=== PATIENT | female | born 1950 | race Caucasian/White ===

== ENCOUNTER 2018-09-25 13:31 | Emergency (ER) | payer MEDICARE, BC ==
[~2018-09-25] VITALS: Ht 160 cm; Wt 59.0 kg
[2018-09-25] MEDS ORDERED: VERA240C2 PO (13:46)
[2018-09-25] MEDS ORDERED: WARF4TAB41 PO (13:46)
[2018-09-25] MEDS ORDERED: AZAT50TA18 PO (13:46)
[2018-09-25] MEDS ORDERED: PHEN100C4 PO (13:46)
[2018-09-25] MEDS ORDERED: BENA40TA67 PO (13:46)
[2018-09-25] MEDS ORDERED: PRED1TAB PO (13:46)
[2018-09-25] MEDS ORDERED: methylPREDNISolone SOD SUCC 125 MG/2 ML VIAL IV ONE (14:00)
[2018-09-25] MEDS ORDERED: FAMOTIDINE. 20 MG/2 ML VIAL IV ONE ×2 (14:00→14:18)
[2018-09-25] MEDS ORDERED: diphenhydrAMINE 50 MG/1 ML VIAL IV ONE (14:00)
[2018-09-25] MEDS ORDERED: diphenhydrAMINE 50 MG/1 ML VIAL ONE (14:18)
[2018-09-25] MEDS ORDERED: methylPREDNISolone SOD SUCC 125 MG/2 ML VIAL ONE (14:18)
[2018-09-25 14:20] LABS: BASOPHILS % (AUTO) 0.4 % (0.0-2.0); EOSINOPHILS # (AUTO) 0.1 K/uL (0.0-0.7); EOSINOPHILS % (AUTO) 0.8 % (0.0-7.0); HEMATOCRIT 32.6 % (31.2-41.9); HEMOGLOBIN 11.3 g/dL (10.9-14.3); LYMPHOCYTES # (AUTO) 1.7 K/uL (20.0-40.0); MEAN CORPUSCULAR HEMOGLOBIN 32.8 uug (24.7-32.8); MEAN CORPUSCULAR HGB CONC 35 g/dL (32.3-35.6); MEAN CORPUSCULAR VOLUME 94.1 fL (75.5-95.3); MONOCYTES # (AUTO) 0.8 K/uL (2.0-10.0); MONOCYTES % (AUTO) 9.2 % (0.0-11.0); NEUTROPHILS # (AUTO) 6.4 K/uL (1.8-8.9); NEUTROPHILS % (AUTO) 70.6 % (38.5-71.5); PLATELET COUNT (AUTO) 255 K/uL (179-408); RED BLOOD CELL COUNT(AUTO) 3.46 MIL/uL (3.63-4.92); WHITE BLOOD COUNT (AUTO) 9.1 K/uL (3.8-11.8)
[2018-09-25 14:29] LABS: CREATININE 0.8 mg/dL (0.6-1.3)
--- NOTE | 2018-09-25 14:43 | NUR ---
PT IS IN ROOM #1B. DR MENDEZ EVALUATED THE PT.
[2018-09-25] MEDS ORDERED: POTASSIUM CHLORIDE 50 ML ONE ×3 (15:12→16:43)
[2018-09-25] MEDS: POTASSIUM CHLORIDE 50 ML IV SCH ×2 (15:22→16:57)
--- NOTE | 2018-09-25 18:45 | NUR ---
PT WAS D/C'd TO HOME. D/C INSTRUCTIONS GIVEN TO THE PT BY DR MENDEZ.
[2018-09-25 18:53] VITALS: BP 151/81
== END 2018-09-25 18:55 | disposition home or self-care (01) ==
LOC: ER 13:31
DX: T78.3XXA Angioneurotic edema, initial encounter (principal); E87.1 Hypo-osmolality and hyponatremia; E87.8 Other disorders of electrolyte and fluid balance, not elsewhere classified; Z88.0 Allergy status to penicillin; Z88.5 Allergy status to narcotic agent; Z79.01 Long term (current) use of anticoagulants; Z79.899 Other long term (current) drug therapy
CPT/HCPCS: 36415; 80048; 85025; 85730; 86850; 86900; 86901; 96365; 96366; 96375; 99283; J1200; J2930; J3480 ×3; J3490; A4663; J7030; J7050

== ENCOUNTER 2022-06-27 11:13 | Emergency (ER) | payer MEDICARE, BC ==
[~2022-06-27] VITALS: Ht 154.9 cm; Wt 58.5 kg
[~2022-06-27 11:13] MED LIST: AZAT50TA18 PO; BENA40TA67 PO; PHEN100C4 PO; PRED1TAB PO; VERA240C2 PO; WARF4TAB41 PO
[2022-06-27] MEDS ORDERED: CEPH500C2 PO (11:55)
--- NOTE | 2022-06-27 11:55 | NUR ---
Patient discharged to home in stable condition. Written and verbal after care instructions given. Patient verbalizes understanding of instructions. Stressed follow up or return to ER for worsening s/s.
== END 2022-06-27 11:58 | disposition home or self-care (01) ==
LOC: ER 11:13
DX: S61.411A Laceration without foreign body of right hand, initial encounter (principal); W22.8XXA Striking against or struck by other objects, initial encounter; Y92.89 Other specified places as the place of occurrence of the external cause; G40.909 Epilepsy, unspecified, not intractable, without status epilepticus; M32.9 Systemic lupus erythematosus, unspecified; Z88.6 Allergy status to analgesic agent; Z88.0 Allergy status to penicillin; Z85.820 Personal history of malignant melanoma of skin; Z79.899 Other long term (current) drug therapy; Z79.01 Long term (current) use of anticoagulants
CPT/HCPCS: A4663